=== PATIENT | female | born 1955 | race Caucasian/White ===

== ENCOUNTER → 2017-08-11 | Outpatient (CLI) | payer OTHER ==
[2017-08-11 13:37] LABS: BASO % 0.8 % (0.0-1.0); LARGE UNSTAINED CELL # 0.1 K/mm3 (0.0-0.4); LARGE UNSTAINED CELL % 1.7 % (0.0-4.0); LYMPH # 0.8 K/mm3 (1.5-4.5); LYMPH % 16.3 % (24.0-44.0); MEAN CORPUSCULAR HEMOGLOBIN 32.6 pg (27.0-33.0); MEAN CORPUSCULAR HGB CONC 34.2 g/dl (32.0-36.5); MEAN CORPUSCULAR VOLUME 95.4 fl (80.0-96.0); MONO # 0.3 K/mm3 (0.0-0.8); MONO % 7.3 % (0.0-5.0); NEUTROPHILS # 3.4 K/mm3 (1.8-7.7); NEUTROPHILS % 72.9 % (36.0-66.0); PLATELET COUNT, AUTOMATED 233 k/mm3 (150-450); RED CELL DISTRIBUTION WIDTH 12.8 % (11.5-14.5); WHITE BLOOD COUNT 4.7 K/mm3 (4.0-10.0)
[2017-08-11 13:44] LABS: ALBUMIN 3.6 GM/DL (3.2-5.2); ALBUMIN/GLOBULIN RATIO 1.29 (1.00-1.93); ALKALINE PHOSPHATASE 70 U/L (45-117); ALT/SGPT 30 U/L (12-78); ANION GAP 9 MEQ/L (8-16); AST/SGOT 18 U/L (15-37); BILIRUBIN,TOTAL 0.4 MG/DL (0.2-1.0); BLOOD UREA NITROGEN 12 MG/DL (7-18); CALCIUM LEVEL 8.7 MG/DL (8.8-10.2); CARBON DIOXIDE LEVEL 26 MEQ/L (21-32); CHLORIDE LEVEL 107 MEQ/L (98-107); CHOLESTEROL LEVEL 161 MG/DL (<200); CREATININE FOR GFR 0.83 MG/DL (0.55-1.02); FREE T4 0.92 NG/DL (0.76-1.46); GLOMERULAR FILTRATION RATE > 60.0 (>45); GLUCOSE, FASTING 114 MG/DL (80-110); POTASSIUM SERUM 4.3 MEQ/L (3.5-5.1); SODIUM LEVEL 142 MEQ/L (136-145); TOTAL PROTEIN 6.4 GM/DL (6.4-8.2); TRIGLYCERIDES LEVEL 216 MG/DL (<150)
== END ==
LOC: M WUC 08:46
PROVIDERS: ATTEND Nurse Practitioner Adult Health
DX: E55.9 Vitamin D deficiency, unspecified (principal); Z79.899 Other long term (current) drug therapy; E78.00 Pure hypercholesterolemia, unspecified

== ENCOUNTER → 2021-10-15 | Outpatient (CLI) | payer MEDICARE, OTHER ==
[~2021-10-15] MED LIST: ALBU8.5H; CEFD300CAP PO; DIAZ2TAB PO; ELIQ5TAB PO; FLON1SPR; FLON1SPR NARES; HYDR-3910 PO; IBUP200C25 PO; LACT20EL PO; LEVO500T4; LIDO2SOL17 PO; METO1TAB33; METO1TAB33 PO; NICO1DIS12 TD; NICO7DIS24 TD; ONDA-84 PO; OXYC1SOL3 PO; POTA8CAP10 PO; PRED10TA2; PROAAER10 INH; PROC10TA5 PO; SENN8.6T28 PO; SENO8.6T5 PO; SIMV10TA21; SIMV10TA21 PO
== END ==
LOC: M RAD 16:10
PROVIDERS: ATTEND Nurse Practitioner Family
DX: R06.02 Shortness of breath (principal)

== ENCOUNTER → 2021-10-20 | Outpatient (CLI) | payer MEDICARE, OTHER ==
[~2021-10-20] MED LIST changes: -CEFD300CAP PO; -DIAZ2TAB PO; -FLON1SPR; -LACT20EL PO; +LEVO500T3; -LEVO500T4; -LIDO2SOL17 PO; -METO1TAB33 PO; -NICO1DIS12 TD; -ONDA-84 PO; -OXYC1SOL3 PO; -POTA8CAP10 PO; -PROAAER10 INH; -PROC10TA5 PO; -SENN8.6T28 PO; -SIMV10TA21 PO
--- NOTE | 2021-10-20 12:32 | REP ---
INDICATION: SOB, LUNG NODUILE COMPARISON: None TECHNIQUE: Axial noncontrast images from the thoracic inlet to the upper abdomen with coronal and sagittal reformations. This CT examination was performed using the following dose reduction techniques: Automated exposure control, adjustment of mA and/or kv according to the patient's size, and use of iterative reconstruction technique. FINDINGS: There is a large mass which appears to be emanating from the right hilar region diffusely involving the mediastinum and causing what appears to be postobstructive collapse to the right upper and right middle lobe with adjacent elements of atelectasis and small effusion. Evaluation is otherwise incomplete due to the lack of intravenous and intrinsic enhancement between mass and mediastinal structures. There is no evidence for cardiomegaly although a small pericardial effusion is noted. The thoracic aorta demonstrates atherosclerotic changes without obvious aneurysm but is inseparable from the above-mentioned mass/adenopathy. The left hemithorax is clear. The osseous structures appear intact. Limited upper abdomen cannot exclude left adrenal nodule versus splenule. IMPRESSION: Large mass involving the right lung with significant extension/invasion into the mediastinum and associated postobstructive collapse to the right upper lobe and right middle lobe with small trapped apical pleural fluid as well as lower lobe atelectasis. Immediate evaluation and consultation is required. <Electronically signed by Imer Price > 10/20/21 0274
== END ==
LOC: M RAD 10:25
PROVIDERS: ATTEND Nurse Practitioner Family
DX: R91.8 Other nonspecific abnormal finding of lung field (principal); R06.02 Shortness of breath

== ENCOUNTER 2021-10-21 06:10 | Emergency (ER) | payer MEDICARE, OTHER ==
[~2021-10-21] VITALS: Ht 160 cm; Wt 71.8 kg
[2021-10-21] MEDS ORDERED: ALBU8.5H (06:19)
[2021-10-21] MEDS ORDERED: METO1TAB33 (06:19)
[2021-10-21] MEDS ORDERED: LEVO500T4 (06:19)
[2021-10-21] MEDS ORDERED: PRED10TA2 (06:19)
[2021-10-21] MEDS ORDERED: SIMV10TA21 (06:19)
[2021-10-21] MEDS ORDERED: dexameTHASONE 20MG/5ML VIAL (J1100 PER 1MG) IV ONE (08:30)
[2021-10-21 08:32] LABS: BASO # 0.1 10^3/uL (0.0-0.2); BASO % 0.4 % (0.0-1.0); EOS % 0.2 % (0.0-3.0); HEMATOCRIT 44.2 % (36.0-47.0); HEMOGLOBIN 14.4 g/dl (12.0-15.5); LYMPH # 2.8 10^3/uL (1.5-5.0); MEAN CORPUSCULAR HEMOGLOBIN 29.6 pg (27.0-33.0); MEAN CORPUSCULAR HGB CONC 32.6 g/dl (32.0-36.5); MEAN CORPUSCULAR VOLUME 90.8 fl (80.0-96.0); MONO # 1.2 10^3/uL (0.0-0.8); NEUTROPHILS % 67.9 % (36.0-66.0); PLATELET COUNT, AUTOMATED 438 10^3/uL (150-450); RED BLOOD COUNT 4.87 10^6/uL (4.00-5.40); WHITE BLOOD COUNT 13.2 10^3/uL (4.0-10.0)
[2021-10-21 08:43] LABS: INR 0.95
[2021-10-21 08:44] LABS: PARTIAL THROMBOPLASTIN TIME 30.2 SECONDS (25.9-37.0)
[2021-10-21 08:53] LABS: ALBUMIN 3.9 GM/DL (3.2-5.2); ALT/SGPT 19 U/L (12-78); BILIRUBIN,DIRECT < 0.1 MG/DL (0.0-0.2); BILIRUBIN,TOTAL 0.4 MG/DL (0.2-1.0); BLOOD UREA NITROGEN 15 MG/DL (7-18); CALCIUM LEVEL 9.7 MG/DL (8.8-10.2); CARBON DIOXIDE LEVEL 25 MEQ/L (21-32); CHLORIDE LEVEL 103 MEQ/L (98-107); CREATININE FOR GFR 0.73 MG/DL (0.55-1.30); GLOMERULAR FILTRATION RATE > 60.0 (>45); GLUCOSE, FASTING 115 MG/DL (70-100); SODIUM LEVEL 138 MEQ/L (136-145); TOTAL PROTEIN 7.2 GM/DL (6.4-8.2)
[2021-10-21] MEDS ORDERED: ISOVUE-370 76% 100ML VIAL As Ordered ONE (08:55)
[2021-10-21 09:50] LABS: RSV AMPLIFICATION NEGATIVE (NEGATIVE)
[2021-10-21 14:08] VITALS: BP 169/104
[2021-11-03] MEDS ORDERED: NICO7DIS24 TD (13:26)
[2021-11-03] MEDS ORDERED: HYDR-3910 PO (13:26)
[2021-11-03] MEDS ORDERED: SENO8.6T5 PO (13:26)
[2021-11-03] MEDS ORDERED: IBUP200C25 PO (13:26)
[2021-11-03] MEDS ORDERED: FLON1SPR NARES (13:26)
[2021-11-05] MEDS ORDERED: ELIQ5TAB PO (10:21)
[2021-11-24] MEDS ORDERED: PROC10TA5 PO (10:46)
[2021-11-24] MEDS ORDERED: ONDA-84 PO (10:46)
[2021-12-15] MEDS ORDERED: POTA8CAP10 PO (09:01)
[2021-12-15] MEDS ORDERED: LIDO2SOL17 PO (15:37)
[2022-01-11] MEDS ORDERED: LACT20EL PO (13:58)
[2022-01-18] MEDS ORDERED: DIAZ2TAB PO (14:40)
[2022-01-18] MEDS ORDERED: OXYC1SOL3 PO (14:40)
== END 2021-10-21 14:12 | disposition short-term general hospital (02) ==
LOC: M ED 06:10
DX: I10 Essential (primary) hypertension (principal); D49.1 Neoplasm of unspecified behavior of respiratory system; I87.1 Compression of vein; R91.8 Other nonspecific abnormal finding of lung field; R93.2 Abnormal findings on diagnostic imaging of liver and biliary tract; J44.9 Chronic obstructive pulmonary disease, unspecified; F17.200 Nicotine dependence, unspecified, uncomplicated; Z88.0 Allergy status to penicillin
CPT/HCPCS: 71275; 74177; 80048; 80076; 83605; 85025; 85610; 85730; 87040; 87631; 93005; 93041; 94760; 96374; 99285; J1100; Q9967

== ENCOUNTER → 2021-11-03 | Outpatient (CLI) | payer MEDICARE, OTHER ==
[~2021-11-03] MED LIST changes: +ONDA8TAB10 PO; +PROC10TA4 PO
== END ==
LOC: M ONCR 15:11
PROVIDERS: ATTEND General Practice
DX: C34.01 Malignant neoplasm of right main bronchus (principal); Z87.891 Personal history of nicotine dependence; Z88.0 Allergy status to penicillin; Z79.899 Other long term (current) drug therapy

== ENCOUNTER → 2021-11-05 | Outpatient (CLI) | payer MEDICARE, OTHER ==
[~2021-11-05] MED LIST changes: +CEFD300CAP PO; +DIAZ2TAB PO; +FLON1SPR; +LACT20EL PO; -LEVO500T3; +LEVO500T4; +LIDO2SOL17 PO; +LIDOCAINE 1% MDV 20ML VIAL As Ordered ONE; +METO1TAB33 PO; +MIDAZOLAM INJ 2MG/2ML VIAL (J2250 PER 1MG) As Ordered ONE; +NICO1DIS12 TD; +NS 1,000 ML IV ONE; +ONDA-84 PO; -ONDA8TAB10 PO; +OXYC1SOL3 PO; +POTA8CAP10 PO; +PROAAER10 INH; -PROC10TA4 PO; +PROC10TA5 PO; +SENN8.6T28 PO; +SIMV10TA21 PO; +VANCOMYCIN 1000MG/20ML VIAL As Ordered ONE; +VANCOMYCIN HCL 1,000 MG, VIAL MATE ADAPTER 1 EACH in NS 250 ML IV ONE; +diphenhydrAMINE 50MG/ML VIAL (J1200) As Ordered ONE; +fentaNYL 100 MCG/2 ML INJECTION As Ordered ONE
[2021-11-05 14:15] VITALS: BP 166/93
== END ==
LOC: M IRPRO 08:59
PROVIDERS: ATTEND Internal Medicine Hematology & Oncology
DX: C34.01 Malignant neoplasm of right main bronchus (principal)
CPT/HCPCS: 36561; 99152; 99153; C1769; C1788; C1894; J1200; J1642; J1644; J2250; J3010; J3370

== ENCOUNTER 2021-11-25 11:40 | Outpatient (RCR) | payer MEDICARE, OTHER ==
[~2021-11-25 11:40] MED LIST changes: -CEFD300CAP PO; -DIAZ2TAB PO; -FLON1SPR; -LACT20EL PO; +LEVO500T3; -LEVO500T4; -LIDO2SOL17 PO; -LIDOCAINE 1% MDV 20ML VIAL As Ordered ONE; -METO1TAB33 PO; -MIDAZOLAM INJ 2MG/2ML VIAL (J2250 PER 1MG) As Ordered ONE; -NICO1DIS12 TD; -NS 1,000 ML IV ONE; -ONDA-84 PO; +ONDA8TAB10 PO; -OXYC1SOL3 PO; -POTA8CAP10 PO; -PROAAER10 INH; +PROC10TA4 PO; -PROC10TA5 PO; -SENN8.6T28 PO; -SIMV10TA21 PO; -VANCOMYCIN 1000MG/20ML VIAL As Ordered ONE; -VANCOMYCIN HCL 1,000 MG, VIAL MATE ADAPTER 1 EACH in NS 250 ML IV ONE; -diphenhydrAMINE 50MG/ML VIAL (J1200) As Ordered ONE; -fentaNYL 100 MCG/2 ML INJECTION As Ordered ONE
== END 2021-11-27 ==
LOC: M ONCR 11:40
PROVIDERS: ATTEND General Practice
DX: C34.11 Malignant neoplasm of upper lobe, right bronchus or lung (principal)

== ENCOUNTER 2021-12-21 19:21 | Inpatient (IN) | payer MEDICARE ==
[~2021-12-21] VITALS: Ht 160 cm; Wt 56.5 kg
[~2021-12-21 19:21] MED LIST changes: -LEVO500T3; +LEVO500T4; +LIDO2SOL17 PO; +ONDA-84 PO; -ONDA8TAB10 PO; +POTA8CAP10 PO; -PROC10TA4 PO; +PROC10TA5 PO
[2021-12-21] MEDS ORDERED: NS 1,000 ML IV ONE (19:45)
[2021-12-21] MEDS ORDERED: LORazepam 2 MG/ML VIAL IV STA (20:06)
[2021-12-21] MEDS ORDERED: LORazepam 2 MG/ML VIAL IM ONE (20:15)
[2021-12-21] MEDS ORDERED: HALOPERIDOL 5MG/ML VIAL (J1630 PER 1) IM ONE (20:15)
[2021-12-21] MEDS ORDERED: diphenhydrAMINE 50MG/ML VIAL (J1200) IM ONE (20:15)
[2021-12-21 20:56] LABS: HEMATOCRIT 32.2 % (36.0-47.0); HEMOGLOBIN 10.4 g/dl (12.0-15.5); MEAN CORPUSCULAR HEMOGLOBIN 28.3 pg (27.0-33.0); MEAN CORPUSCULAR HGB CONC 32.3 g/dl (32.0-36.5); MEAN CORPUSCULAR VOLUME 87.7 fl (80.0-96.0); PLATELET COUNT, AUTOMATED 263 10^3/uL (150-450); RED BLOOD COUNT 3.67 10^6/uL (4.00-5.40); WHITE BLOOD COUNT 7.4 10^3/uL (4.0-10.0)
[2021-12-21 21:09] LABS: CK-MB VALUE MASS < 1.0 NG/ML (<3.6); CPK CREATINE PHOSPHOKINASE 21 U/L (26-192); MB/CK RELATIVE INDEX 4.76 (< OR =4)
[2021-12-21 21:12] LABS: OSMOLALITY SERUM 289 MOSM/KG (280-301)
[2021-12-21 21:14] LABS: ACETAMINOPHEN LEVEL < 2.0 UG/ML (10.0-30.0); ALBUMIN 3.3 GM/DL (3.2-5.2); ALT/SGPT 44 U/L (12-78); BILIRUBIN,DIRECT 0.1 MG/DL (0.0-0.2); BILIRUBIN,TOTAL 0.5 MG/DL (0.2-1.0); BLOOD UREA NITROGEN 17 MG/DL (7-18); CALCIUM LEVEL 9.1 MG/DL (8.8-10.2); CARBON DIOXIDE LEVEL 31 MEQ/L (21-32); CHLORIDE LEVEL 102 MEQ/L (98-107); ETHYL ALCOHOL (ETHANOL) < 0.003 % (0.000-0.010); GLOMERULAR FILTRATION RATE > 60.0 (>45); GLUCOSE, FASTING 107 MG/DL (70-100); POTASSIUM SERUM 4.1 MEQ/L (3.5-5.1); SALICYLATE LEVEL < 1.7 MG/DL (5.0-30.0); SODIUM LEVEL 139 MEQ/L (136-145); TOTAL PROTEIN 6.3 GM/DL (6.4-8.2)
[2021-12-21 21:24] LABS: BASOPHILS 2 % (0-1); LYMPHOCYTES 12 % (16-44); MONOCYTES 1 % (0-5); NEUTROPHILS 85 % (28-66)
[2021-12-21 21:25] LABS: PLATELET ESTIMATE NORMAL (NORMAL)
[2021-12-21] MEDS ORDERED: dexameTHASONE 20MG/5ML VIAL (J1100 PER 1MG) IV ONE (21:50)
[2021-12-21] MEDS ORDERED: levETIRAcetam INJection 750 MG in D5W 100 ML IV ONE (21:50)
[2021-12-21 22:30] LABS: ABG BASE EXCESS 0.5 (-2.0-2.0); ABG HCO3 23.7 MEQ/L (22.0-26.0); ABG O2 SATURATION 98.3 % (95.0-99.0); ABG PARTIAL PRESSURE CO2 33.1 mmHg (35.0-45.0); ABG PARTIAL PRESSURE O2 130.3 mmHg (75.0-100.0); ABG STANDARD HCO3 24.9 MEQ/L (22.0-26.0); ABG TOTAL CO2 24.7 MEQ/L (23.0-31.0); ABG pH (ARTERIAL) 7.473 UNITS (7.350-7.450)
[2021-12-21 23:18] LABS: AMPHETAMINES LEVEL URINE NEGATIVE (NEGATIVE); BARBITURATES URINE NEGATIVE (NEGATIVE); BENZODIAZEPINES URINE NEGATIVE (NEGATIVE); CANNABINOIDS URINE NEGATIVE (NEGATIVE); COCAINE METABOLITE URINE NEGATIVE (NEGATIVE); METHADONE URINE NEGATIVE (NEGATIVE); OPIATES URINE NEGATIVE (NEGATIVE); PHENCYCLIDINE URINE NEGATIVE (NEGATIVE)
[2021-12-21] MEDS ORDERED: cefTRIAXone SOD 1 GM in D5W MINI-BAG PLUS 50 ML IV ONE (23:40)
[2021-12-22] MEDS ORDERED: MAALOX 30 ML SUSP *UDC PO PRN (00:30)
[2021-12-22] MEDS ORDERED: ACETAMINOPHEN TAB 650MG DOSE (2X325MG) PO PRN (00:30)
[2021-12-22] MEDS ORDERED: MOM 30ML SUSPENSION UDC PO PRN (00:30)
[2021-12-22] MEDS ORDERED: LORazepam 2 MG/ML VIAL IV PRN (00:30)
[2021-12-22] MEDS ORDERED: PROAAER10 INH (01:29)
[2021-12-22] MEDS ORDERED: NICO1DIS12 TD (01:29)
[2021-12-22] MEDS ORDERED: SENN8.6T28 PO (01:29)
[2021-12-22] MEDS ORDERED: FLON1SPR (01:29)
[2021-12-22] MEDS ORDERED: METO1TAB33 PO (01:29)
[2021-12-22] MEDS ORDERED: SIMV10TA21 PO (01:30)
[2021-12-22] MEDS ORDERED: HOME MED LIST COMPLETE! XX SCH (01:35)
[2021-12-22 01:50] VITALS: BP 184/82
[2021-12-22] MEDS ORDERED: ALBUTEROL 90 MCG/ACT 8GM HFA INHALER INH PRN (02:05)
[2021-12-22] MEDS ORDERED: FLUTICASONE PROP 0.05% NASAL SPRAY 16 GM (FLONASE) PRN (02:05)
[2021-12-22] MEDS ORDERED: ONDANSETRON 4 MG TAB PO PRN (02:05)
[2021-12-22] MEDS ORDERED: PROCHLORPERAZINE 5 MG TAB (S0183) PO PRN (02:05)
[2021-12-22 02:30] VITALS: BP 152/84
[2021-12-22] MEDS: PHENAZOPYRIDINE 100 MG TAB PO SCH ×4 (02:57→20:03)
[2021-12-22] MEDS: NS 1,000 ML IV SCH ×2 (03:12→10:30)
[2021-12-22 06:10] VITALS: BP 146/84
[2021-12-22 06:35] LABS: INR 1.03; PARTIAL THROMBOPLASTIN TIME 30.6 SECONDS (25.9-37.0); PROTHROMBIN TIME 13.9 SECONDS (12.7-14.5)
[2021-12-22] MEDS ORDERED: POTASSIUM CHLORIDE 10MEQ SR TABLET PO SCH (09:00)
[2021-12-22] MEDS: NICOTINE 21MG/24HR 1 EA TRANSDERMAL TD SCH (09:00)
[2021-12-22] MEDS: APIXABAN 5 MG TAB (ELIQUIS) PO SCH ×2 (09:49→20:03)
[2021-12-22] MEDS: DOCUSATE SODIUM 100MG CAPSULE PO SCH ×2 (09:49→20:03)
[2021-12-22] MEDS: LIDOCAINE VISCOUS 2% SOLN 15ML UDC PO SCH ×4 (09:49→20:05)
[2021-12-22] MEDS: SIMVASTATIN 10 MG TAB PO SCH (09:50)
[2021-12-22] MEDS: METOPROLOL SUCC (TopROL XL) 100MG *XL* TAB PO SCH (09:51)
[2021-12-22 15:53] VITALS: BP 153/79
[2021-12-22] MEDS: SODIUM CHLORIDE NASAL 0.65% SPRAY BTL (OCEAN) SCH (20:11)
[2021-12-22 22:00] VITALS: BP 140/78
[2021-12-23] MEDS: cefTRIAXone SOD 1 GM in D5W MINI-BAG PLUS 50 ML IV SCH (01:27)
[2021-12-23 05:18] LABS: HEMATOCRIT 27.4 % (36.0-47.0); HEMOGLOBIN 8.9 g/dl (12.0-15.5); MEAN CORPUSCULAR HEMOGLOBIN 28.5 pg (27.0-33.0); MEAN CORPUSCULAR HGB CONC 32.5 g/dl (32.0-36.5); MEAN CORPUSCULAR VOLUME 87.8 fl (80.0-96.0); PLATELET COUNT, AUTOMATED 165 10^3/uL (150-450); RED BLOOD COUNT 3.12 10^6/uL (4.00-5.40); WHITE BLOOD COUNT 4.5 10^3/uL (4.0-10.0)
[2021-12-23 05:44] LABS: BLOOD UREA NITROGEN 10 MG/DL (7-18); CALCIUM LEVEL 8.3 MG/DL (8.8-10.2); CARBON DIOXIDE LEVEL 27 MEQ/L (21-32); CHLORIDE LEVEL 107 MEQ/L (98-107); CREATININE FOR GFR 0.45 MG/DL (0.55-1.30); GLOMERULAR FILTRATION RATE > 60.0 (>45); GLUCOSE, FASTING 87 MG/DL (70-100); MAGNESIUM LEVEL 1.7 MG/DL (1.8-2.4); POTASSIUM SERUM 3.3 MEQ/L (3.5-5.1); SODIUM LEVEL 140 MEQ/L (136-145)
[2021-12-23 06:00] VITALS: BP 138/78
[2021-12-23] MEDS ORDERED: MAG SULF 1GM/100ML (MAG RUN) 1 GM in IV 1 EA IV ONE (07:40)
[2021-12-23] MEDS ORDERED: POTASSIUM CHLORIDE 10MEQ SR TABLET PO ONE (07:40)
[2021-12-23] MEDS: SODIUM CHLORIDE NASAL 0.65% SPRAY BTL (OCEAN) SCH ×3 (08:01→20:19)
[2021-12-23] MEDS: LIDOCAINE VISCOUS 2% SOLN 15ML UDC PO SCH ×3 (08:01→20:19)
[2021-12-23] MEDS: PHENAZOPYRIDINE 100 MG TAB PO SCH ×3 (08:02→20:18)
[2021-12-23] MEDS: DOCUSATE SODIUM 100MG CAPSULE PO SCH ×2 (08:03→20:18)
[2021-12-23] MEDS: METOPROLOL SUCC (TopROL XL) 100MG *XL* TAB PO SCH (08:04)
[2021-12-23] MEDS: NICOTINE 21MG/24HR 1 EA TRANSDERMAL TD SCH (08:05)
[2021-12-23] MEDS: SIMVASTATIN 10 MG TAB PO SCH (08:14)
[2021-12-23] MEDS: APIXABAN 5 MG TAB (ELIQUIS) PO SCH ×2 (08:14→20:19)
[2021-12-23 14:00] VITALS: BP 134/81
[2021-12-23 22:00] VITALS: BP 105/65
[2021-12-24] MEDS: cefTRIAXone SOD 1 GM in D5W MINI-BAG PLUS 50 ML IV SCH (01:12)
[2021-12-24 06:00] VITALS: BP 110/81
[2021-12-24] MEDS: SIMVASTATIN 10 MG TAB PO SCH (09:00)
[2021-12-24] MEDS: DOCUSATE SODIUM 100MG CAPSULE PO SCH (09:00)
[2021-12-24] MEDS: LIDOCAINE VISCOUS 2% SOLN 15ML UDC PO SCH ×2 (09:00→16:00)
[2021-12-24] MEDS: APIXABAN 5 MG TAB (ELIQUIS) PO SCH (09:00)
[2021-12-24] MEDS: NICOTINE 21MG/24HR 1 EA TRANSDERMAL TD SCH (09:28)
[2021-12-24] MEDS: PHENAZOPYRIDINE 100 MG TAB PO SCH ×2 (09:29→16:00)
[2021-12-24 09:30] VITALS: BP 121/82
[2021-12-24] MEDS: SODIUM CHLORIDE NASAL 0.65% SPRAY BTL (OCEAN) SCH ×2 (09:30→16:00)
[2021-12-24] MEDS: METOPROLOL SUCC (TopROL XL) 100MG *XL* TAB PO SCH (09:30)
[2021-12-24] MEDS ORDERED: CEFD300CAP PO (10:46)
[2021-12-24 10:54] LABS: HEMOGLOBIN 9.3 g/dl (12.0-15.5); MEAN CORPUSCULAR HEMOGLOBIN 28.9 pg (27.0-33.0); MEAN CORPUSCULAR HGB CONC 33.2 g/dl (32.0-36.5); PLATELET COUNT, AUTOMATED 131 10^3/uL (150-450); RED BLOOD COUNT 3.22 10^6/uL (4.00-5.40)
[2021-12-24 11:30] LABS: ATYPICAL LYMPH 2 % (0-5); BASOPHILS 2 % (0-1); LYMPHOCYTES 9 % (16-44); MONOCYTES 2 % (0-5); NEUTROPHILS 85 % (28-66); PLATELET ESTIMATE NORMAL (NORMAL); POIKILOCYTOSIS 1+
[2021-12-24 12:39] LABS: BLOOD UREA NITROGEN 7 MG/DL (7-18); CALCIUM LEVEL 8.6 MG/DL (8.8-10.2); CARBON DIOXIDE LEVEL 29 MEQ/L (21-32); CHLORIDE LEVEL 103 MEQ/L (98-107); CREATININE FOR GFR 0.48 MG/DL (0.55-1.30); GLOMERULAR FILTRATION RATE > 60.0 (>45); GLUCOSE, FASTING 108 MG/DL (70-100); MAGNESIUM LEVEL 1.9 MG/DL (1.8-2.4); POTASSIUM SERUM 4.1 MEQ/L (3.5-5.1); SODIUM LEVEL 138 MEQ/L (136-145)
[2021-12-24 14:00] VITALS: BP 112/66
== END 2021-12-24 16:35 | disposition home health service (06) | DRG 689 ==
LOC: M ED 19:21 → M ED INP 12-22 00:26 → ENRESERV 12-22 00:50 → M MS5PR 12-22 01:47
PROVIDERS: ADMIT Internal Medicine; ATTEND Internal Medicine Nephrology
DX: N39.0 Urinary tract infection, site not specified (principal); G93.41 Metabolic encephalopathy; C34.90 Malignant neoplasm of unspecified part of unspecified bronchus or lung; C78.1 Secondary malignant neoplasm of mediastinum; J96.11 Chronic respiratory failure with hypoxia; I87.1 Compression of vein; R41.82 Altered mental status, unspecified; I48.91 Unspecified atrial fibrillation; B96.20 Unspecified Escherichia coli [E. coli] as the cause of diseases classified elsewhere; E78.5 Hyperlipidemia, unspecified; E83.42 Hypomagnesemia; E87.6 Hypokalemia; K59.00 Constipation, unspecified; E55.9 Vitamin D deficiency, unspecified; F34.1 Dysthymic disorder; Z99.81 Dependence on supplemental oxygen; Z87.891 Personal history of nicotine dependence; Z79.01 Long term (current) use of anticoagulants; Z79.899 Other long term (current) drug therapy; Z88.0 Allergy status to penicillin; Z91.010 Allergy to peanuts

== ENCOUNTER → 2021-12-28 | Outpatient (RCR) | payer MEDICARE, OTHER ==
[~2021-12-28] MED LIST changes: +CEFD300CAP PO; +FLON1SPR; +METO1TAB33 PO; +NICO1DIS12 TD; +PROAAER10 INH; +SENN8.6T28 PO; +SIMV10TA21 PO
== END ==
LOC: M ONCR 12-01 16:08
PROVIDERS: ATTEND General Practice
DX: C34.11 Malignant neoplasm of upper lobe, right bronchus or lung (principal); R53.83 Other fatigue

== ENCOUNTER → 2022-01-25 | Outpatient (RCR) | payer MEDICARE ==
[~2022-01-25] MED LIST changes: +DIAZ2TAB PO; +LACT20EL PO; +OXYC1SOL3 PO
== END ==
LOC: M ONCR 12-29 13:36
PROVIDERS: ATTEND General Practice
DX: C34.11 Malignant neoplasm of upper lobe, right bronchus or lung (principal); R53.83 Other fatigue

== ENCOUNTER 2022-02-10 13:30 | Outpatient (RCR) | payer MEDICARE ==
[~2022-02-10 13:30] MED LIST changes: +EPIP0.3I2 IM
[2022-02-10] MEDS ORDERED: FENT12DI12 TOP (13:50)
[2022-02-17] MEDS ORDERED: [UNRECOGNIZED DRUG - CODE] PR (11:37)
[2022-02-22] MEDS ORDERED: FENT12DI12 TOP (12:05)
[2022-02-22] MEDS ORDERED: OXYC1SOL3 PO (12:10)
== END 2022-02-25 ==
LOC: M ONCR 13:30
PROVIDERS: ATTEND General Practice
DX: C34.11 Malignant neoplasm of upper lobe, right bronchus or lung (principal); R53.83 Other fatigue
CPT/HCPCS: 77336; 77386; G0463

== ENCOUNTER → 2022-02-17 | Outpatient (CLI) | payer MEDICARE ==
[~2022-02-17] MED LIST changes: +FENT12DI12 TOP; +[UNRECOGNIZED DRUG - CODE] PR
== END ==
LOC: M ONCR 10:14
PROVIDERS: ATTEND General Practice
DX: C34.11 Malignant neoplasm of upper lobe, right bronchus or lung (principal); R13.10 Dysphagia, unspecified

== ENCOUNTER → 2022-02-24 | Outpatient (CLI) | payer OTHER ==
[~2022-02-24] MED LIST changes: +GASTROGRAFIN SOLUTION 30ML (Q9963) As Ordered ONE; +ISOVUE-370 76% 100ML VIAL As Ordered ONE
== END ==
LOC: M RAD 08:25
PROVIDERS: ATTEND Internal Medicine Hematology & Oncology
DX: C34.90 Malignant neoplasm of unspecified part of unspecified bronchus or lung (principal)
CPT/HCPCS: 71260; 74177; Q9963; Q9967

== ENCOUNTER 2022-03-09 09:37 | Outpatient (RCR) | payer MEDICARE ==
[~2022-03-09 09:37] MED LIST changes: +DEXA2TA PO; -GASTROGRAFIN SOLUTION 30ML (Q9963) As Ordered ONE; -ISOVUE-370 76% 100ML VIAL As Ordered ONE; +LEXA1TAB PO; +LIDO2SOL17; +META28.32 PO
[2022-03-09] MEDS ORDERED: ATOR1TAB21 PO (11:21)
[2022-03-09] MEDS ORDERED: ASPI81CH33 PO (11:22)
== END 2022-03-27 ==
LOC: M ONCR 09:37
PROVIDERS: ATTEND General Practice
DX: C34.11 Malignant neoplasm of upper lobe, right bronchus or lung (principal)

== ENCOUNTER → 2022-05-05 | Outpatient (CLI) | payer MEDICARE ==
[~2022-05-05] MED LIST changes: +ASPI81CH33 PO; +ATOR1TAB21 PO
== END ==
LOC: M RAD 10:41
PROVIDERS: ATTEND Internal Medicine Hematology & Oncology
DX: Z53.9 Procedure and treatment not carried out, unspecified reason (principal)

== ENCOUNTER → 2022-06-03 | Outpatient (CLI) | payer OTHER ==
[~2022-06-03] MED LIST changes: +TOPR100T PO
== END ==
LOC: M ONCR 09:09
PROVIDERS: ATTEND General Practice
DX: Z85.118 Personal history of other malignant neoplasm of bronchus and lung (principal); Z87.891 Personal history of nicotine dependence; Z92.21 Personal history of antineoplastic chemotherapy; Z92.3 Personal history of irradiation; Z08 Encounter for follow-up examination after completed treatment for malignant neoplasm; Z88.0 Allergy status to penicillin; Z91.010 Allergy to peanuts; Z79.82 Long term (current) use of aspirin; Z79.891 Long term (current) use of opiate analgesic; Z79.899 Other long term (current) drug therapy; Z79.51 Long term (current) use of inhaled steroids

== ENCOUNTER → 2022-06-09 | Outpatient (CLI) | payer MEDICARE | LOC: M ONCR 09:19 | PROVIDERS: ATTEND General Practice | DX: Z53.9 Procedure and treatment not carried out, unspecified reason (principal) ==

== ENCOUNTER → 2022-07-02 | Outpatient (CLI) | payer OTHER ==
[~2022-07-02] MED LIST changes: +LEVO1TAB39; -LEVO500T4
[2022-07-02 14:31] LABS: ALBUMIN 3.3 GM/DL (3.2-5.2); ALT/SGPT 19 U/L (12-78); BILIRUBIN,TOTAL 0.4 MG/DL (0.2-1.0); BLOOD UREA NITROGEN 14 MG/DL (7-18); CALCIUM LEVEL 9.1 MG/DL (8.8-10.2); CARBON DIOXIDE LEVEL 27 MEQ/L (21-32); CHLORIDE LEVEL 111 MEQ/L (98-107); CREATININE FOR GFR 0.76 MG/DL (0.55-1.30); GLOMERULAR FILTRATION RATE > 60.0 (>45); GLUCOSE, FASTING 102 MG/DL (70-100); SODIUM LEVEL 142 MEQ/L (136-145); TOTAL PROTEIN 6.3 GM/DL (6.4-8.2)
== END ==
LOC: M ONCM 13:02
PROVIDERS: ATTEND General Practice
DX: Z51.0 Encounter for antineoplastic radiation therapy (principal); C34.11 Malignant neoplasm of upper lobe, right bronchus or lung

== ENCOUNTER → 2022-07-05 | Outpatient (CLI) | payer MEDICARE ==
[~2022-07-05] MED LIST changes: +GASTROGRAFIN SOLUTION 30ML (Q9963) As Ordered ONE; +ISOVUE-370 76% 100ML VIAL As Ordered ONE
== END ==
LOC: M RAD 09:19
PROVIDERS: ATTEND General Practice
DX: C34.11 Malignant neoplasm of upper lobe, right bronchus or lung (principal); N28.1 Cyst of kidney, acquired; K57.30 Diverticulosis of large intestine without perforation or abscess without bleeding
CPT/HCPCS: 70470; 71260; 74177; Q9963; Q9967

== ENCOUNTER → 2022-07-07 | Outpatient (CLI) | payer MEDICARE ==
[~2022-07-07] MED LIST changes: -GASTROGRAFIN SOLUTION 30ML (Q9963) As Ordered ONE; -ISOVUE-370 76% 100ML VIAL As Ordered ONE
== END ==
LOC: M RAD 10:48
PROVIDERS: ATTEND General Practice
DX: Z51.0 Encounter for antineoplastic radiation therapy (principal); C34.11 Malignant neoplasm of upper lobe, right bronchus or lung

== ENCOUNTER → 2022-07-07 | Outpatient (CLI) | payer MEDICARE | LOC: M ONCR 09:56 | PROVIDERS: ATTEND General Practice | DX: C34.11 Malignant neoplasm of upper lobe, right bronchus or lung (principal); Z92.3 Personal history of irradiation; Z92.21 Personal history of antineoplastic chemotherapy; Z87.891 Personal history of nicotine dependence; Z88.0 Allergy status to penicillin; Z91.010 Allergy to peanuts; Z79.899 Other long term (current) drug therapy ==

== ENCOUNTER → 2022-12-23 | Outpatient (CLI) | payer MEDICARE ==
[2022-12-23 14:15] LABS: ALBUMIN 3.8 G/DL (3.2-5.2); ALKALINE PHOSPHATASE 106 U/L (46-116); ALT/SGPT 17 U/L (7.0-40); AST/SGOT 20 U/L (<34); BILIRUBIN,TOTAL 0.5 MG/DL (0.3-1.2); BLOOD UREA NITROGEN 15 MG/DL (9-23); CARBON DIOXIDE LEVEL 27 MMOL/L (20-31); CHLORIDE LEVEL 109 MMOL/L (98-107); CREATININE FOR GFR 0.81 MG/DL (0.55-1.30); GLOMERULAR FILTRATION RATE > 60.0 (>45); GLUCOSE, FASTING 99 MG/DL (74-106); POTASSIUM SERUM 4.1 MMOL/L (3.5-5.1); SODIUM LEVEL 142 MMOL/L (136-145); TOTAL PROTEIN 6.6 G/DL (5.7-8.2)
== END ==
LOC: M ONCR 12:53
PROVIDERS: ATTEND General Practice
DX: Z51.0 Encounter for antineoplastic radiation therapy (principal); C34.11 Malignant neoplasm of upper lobe, right bronchus or lung

== ENCOUNTER → 2022-12-23 | Outpatient (REF) | payer MEDICARE ==
[2022-12-23 13:52] LABS: BASO % 0.7 % (0.0-1.0); EOS # 0.1 10^3/uL (0.0-0.5); EOS % 1.9 % (0.0-3.0); HEMATOCRIT 38.4 % (36.0-47.0); LYMPH # 0.7 10^3/uL (1.5-5.0); LYMPH % 16.8 % (24.0-44.0); MEAN CORPUSCULAR HEMOGLOBIN 30.2 pg (27.0-33.0); MEAN CORPUSCULAR HGB CONC 31.3 g/dl (32.0-36.5); MEAN CORPUSCULAR VOLUME 96.7 fl (80.0-96.0); MONO # 0.4 10^3/uL (0.0-0.8); MONO % 8.6 % (2.0-8.0); NEUTROPHILS % 71.1 % (36.0-66.0); PLATELET COUNT, AUTOMATED 176 10^3/uL (150-450); RED BLOOD COUNT 3.97 10^6/uL (4.00-5.40); WHITE BLOOD COUNT 4.3 10^3/uL (4.0-10.0)
[2022-12-23 14:09] LABS: HEMOGLOBIN A1c 5.2 % (4.0-6.0)
[2022-12-23 14:36] LABS: ALBUMIN 3.6 G/DL (3.2-5.2); ALKALINE PHOSPHATASE 106 U/L (46-116); ALT/SGPT 21 U/L (7.0-40); AST/SGOT 21 U/L (<34); BILIRUBIN,TOTAL 0.4 MG/DL (0.3-1.2); BLOOD UREA NITROGEN 18 MG/DL (9-23); CALCIUM LEVEL 8.9 MG/DL (8.3-10.6); CARBON DIOXIDE LEVEL 26 MMOL/L (20-31); CHLORIDE LEVEL 109 MMOL/L (98-107); CHOLESTEROL LEVEL 122 MG/DL (<200); CHOLESTEROL RISK RATIO 3.07 (<5); GLOMERULAR FILTRATION RATE > 60.0 (>45); GLUCOSE, FASTING 99 MG/DL (74-106); HDL CHOLESTEROL 39.7 MG/DL (>40); LDL CHOLESTEROL 62.1 MG/DL (<100); NON-HDL-C 82 MG/DL; POTASSIUM SERUM 4.1 MMOL/L (3.5-5.1); SODIUM LEVEL 142 MMOL/L (136-145); THYROID STIMULATING HORMONE 4.618 uIU/ML (0.55-4.78); TOTAL PROTEIN 6.2 G/DL (5.7-8.2); TRIGLYCERIDES LEVEL 101 MG/DL (<150)
== END ==
LOC: M LAB REF 13:23
PROVIDERS: ATTEND Nurse Practitioner Family
DX: Z00.01 Encounter for general adult medical examination with abnormal findings (principal); Z79.899 Other long term (current) drug therapy

== ENCOUNTER → 2022-12-27 | Outpatient (CLI) | payer MEDICARE ==
[~2022-12-27] MED LIST changes: +GASTROGRAFIN SOLUTION 30ML As Ordered ONE; +ISOVUE-370 76% 100ML VIAL As Ordered ONE; +LIDO15SO4; +LIDO15SO4 PO; -LIDO2SOL17; -LIDO2SOL17 PO
== END ==
LOC: M RAD 11:02
PROVIDERS: ATTEND General Practice
DX: Z51.0 Encounter for antineoplastic radiation therapy (principal)
CPT/HCPCS: 70470; 71260; 74177; Q9963; Q9967

== ENCOUNTER → 2023-01-05 | Outpatient (CLI) | payer MEDICARE ==
[~2023-01-05] MED LIST changes: -GASTROGRAFIN SOLUTION 30ML As Ordered ONE; -ISOVUE-370 76% 100ML VIAL As Ordered ONE
== END ==
LOC: M ONCR 09:50
PROVIDERS: ATTEND General Practice
DX: C34.11 Malignant neoplasm of upper lobe, right bronchus or lung (principal); Z79.51 Long term (current) use of inhaled steroids; Z79.52 Long term (current) use of systemic steroids; Z79.82 Long term (current) use of aspirin; Z79.899 Other long term (current) drug therapy; Z87.891 Personal history of nicotine dependence; Z88.0 Allergy status to penicillin; Z91.010 Allergy to peanuts; Z92.21 Personal history of antineoplastic chemotherapy; Z92.3 Personal history of irradiation

== ENCOUNTER 2023-03-02 22:19 | Emergency (ER) | payer MEDICARE ==
[~2023-03-02] VITALS: Ht 162.6 cm; Wt 45.6 kg
[~2023-03-02 22:19] MED LIST changes: +LIDO15SO; +LIDO15SO PO; -LIDO15SO4; -LIDO15SO4 PO
[2023-03-02] MEDS ORDERED: levETIRAcetam INJection 1,500 MG in D5W 100 ML IV ONE (23:20)
[2023-03-02 23:34] LABS: BASO % 0.3 % (0.0-1.0); EOS # 0.1 10^3/uL (0.0-0.5); EOS % 0.8 % (0.0-3.0); HEMATOCRIT 36.5 % (36.0-47.0); HEMOGLOBIN 11.9 g/dl (12.0-15.5); LYMPH # 0.6 10^3/uL (1.5-5.0); LYMPH % 6.6 % (24.0-44.0); MEAN CORPUSCULAR HEMOGLOBIN 30.4 pg (27.0-33.0); MEAN CORPUSCULAR HGB CONC 32.6 g/dl (32.0-36.5); MEAN CORPUSCULAR VOLUME 93.4 fl (80.0-96.0); MONO # 0.9 10^3/uL (0.0-0.8); MONO % 9.6 % (2.0-8.0); NEUTROPHILS # 7.4 10^3/uL (1.5-8.5); NEUTROPHILS % 81.4 % (36.0-66.0); PLATELET COUNT, AUTOMATED 190 10^3/uL (150-450); RED BLOOD COUNT 3.91 10^6/uL (4.00-5.40)
[2023-03-02 23:47] LABS: INR 0.94; LIPASE 36 U/L (12-53); PROTHROMBIN TIME 12.8 SECONDS (12.5-14.5)
[2023-03-02 23:49] LABS: CPK CREATINE PHOSPHOKINASE 116 U/L (34-145)
[2023-03-02 23:50] VITALS: BP 144/83
[2023-03-02 23:50] LABS: ALBUMIN 3.6 G/DL (3.2-5.2); ALKALINE PHOSPHATASE 103 U/L (46-116); ALT/SGPT 15 U/L (7.0-40); AST/SGOT 26 U/L (<34); BILIRUBIN,DIRECT 0.1 MG/DL (<0.4); BILIRUBIN,TOTAL 0.3 MG/DL (0.3-1.2); BLOOD UREA NITROGEN 18 MG/DL (9-23); CALCIUM LEVEL 8.8 MG/DL (8.3-10.6); CARBON DIOXIDE LEVEL 25 MMOL/L (20-31); CHLORIDE LEVEL 109 MMOL/L (98-107); CREATININE FOR GFR 0.88 MG/DL (0.55-1.30); GLOMERULAR FILTRATION RATE > 60.0 (>45); GLUCOSE, FASTING 115 MG/DL (74-106); POTASSIUM SERUM 4.4 MMOL/L (3.5-5.1); SODIUM LEVEL 141 MMOL/L (136-145); TOTAL PROTEIN 6.2 G/DL (5.7-8.2)
[2023-03-02 23:52] LABS: THYROID STIMULATING HORMONE 4.484 uIU/ML (0.55-4.78)
[2023-03-02 23:53] LABS: CK-MB VALUE MASS < 1.0 NG/ML (<3.6); MB/CK RELATIVE INDEX 0.86 (< OR =4)
[2023-03-03] LABS: RSV AMPLIFICATION NEGATIVE (NEGATIVE)
[2023-03-03 00:18] VITALS: BP 144/83
[2023-03-03] MEDS ORDERED: ASPIRIN 81MG CHEW TABLET PO ONE (01:05)
== END 2023-03-03 01:11 | disposition short-term general hospital (02) ==
LOC: EDBD 22:19 → M ED 22:19
DX: R56.9 Unspecified convulsions (principal); G93.89 Other specified disorders of brain; Z85.118 Personal history of other malignant neoplasm of bronchus and lung
CPT/HCPCS: 70450; 71045; 72125; 80048; 80076; 82550; 82553; 83690; 84443; 84484; 85025; 85610; 87631; 93005; 93041; 94760; 96374; 99285; J1953

== ENCOUNTER → 2023-03-08 | Outpatient (CLI) | payer MEDICARE ==
[~2023-03-08] MED LIST changes: +ATIV1TAB10 PO; +DEXA4TA PO; +DULO30CA47 PO; +KEPP1SOL PO; +LEVE500T5; +LORA2TAB14 PO; +ONDA4TAB6 PO; +TRAM50TA2 PO
== END ==
LOC: M ONCR 14:13
PROVIDERS: ATTEND Radiology Radiation Oncology
DX: C34.90 Malignant neoplasm of unspecified part of unspecified bronchus or lung (principal); C79.31 Secondary malignant neoplasm of brain; E27.9 Disorder of adrenal gland, unspecified; R56.9 Unspecified convulsions; R91.8 Other nonspecific abnormal finding of lung field; Z79.52 Long term (current) use of systemic steroids; Z79.82 Long term (current) use of aspirin; Z79.891 Long term (current) use of opiate analgesic; Z79.899 Other long term (current) drug therapy; Z86.73 Personal history of transient ischemic attack (TIA), and cerebral infarction without residual deficits; Z87.891 Personal history of nicotine dependence; Z88.0 Allergy status to penicillin; Z91.010 Allergy to peanuts; Z92.21 Personal history of antineoplastic chemotherapy; Z92.3 Personal history of irradiation
CPT/HCPCS: G0463; G2212

== ENCOUNTER → 2023-03-09 | Outpatient (CLI) | payer MEDICARE ==
[~2023-03-09] MED LIST changes: -DEXA4TA PO; -DULO30CA47 PO; -KEPP1SOL PO; -LEVE500T5; -LORA2TAB14 PO; -ONDA4TAB6 PO; +PROHANCE 279.3MG/ML 15ML VIAL ONE
== END ==
LOC: M PLAIMG 12:43
PROVIDERS: ATTEND General Practice
DX: Z51.0 Encounter for antineoplastic radiation therapy (principal)
CPT/HCPCS: 70553; A9576

== ENCOUNTER → 2023-03-10 | Outpatient (CLI) | payer MEDICARE ==
[~2023-03-10] MED LIST changes: +DULO30CA47 PO; +LEVE500T5; -PROHANCE 279.3MG/ML 15ML VIAL ONE
== END ==
LOC: M PAL 08:00
PROVIDERS: ATTEND Nurse Practitioner Family
DX: C34.90 Malignant neoplasm of unspecified part of unspecified bronchus or lung (principal); C79.31 Secondary malignant neoplasm of brain; Z51.5 Encounter for palliative care; G89.3 Neoplasm related pain (acute) (chronic); M25.519 Pain in unspecified shoulder; M54.9 Dorsalgia, unspecified; F41.9 Anxiety disorder, unspecified; Z79.891 Long term (current) use of opiate analgesic; Z79.899 Other long term (current) drug therapy

== ENCOUNTER → 2023-03-10 | Outpatient (CLI) | payer MEDICARE ==
[~2023-03-10] MED LIST changes: +DEXA4TA PO
== END ==
LOC: M ONCR 10:38
PROVIDERS: ATTEND General Practice
DX: C34.90 Malignant neoplasm of unspecified part of unspecified bronchus or lung (principal); C79.31 Secondary malignant neoplasm of brain; F32.A Depression, unspecified; F41.9 Anxiety disorder, unspecified; Z86.73 Personal history of transient ischemic attack (TIA), and cerebral infarction without residual deficits; Z79.51 Long term (current) use of inhaled steroids; Z79.52 Long term (current) use of systemic steroids; Z79.899 Other long term (current) drug therapy; Z87.891 Personal history of nicotine dependence; Z88.0 Allergy status to penicillin; Z91.010 Allergy to peanuts

== ENCOUNTER 2023-03-25 08:00 | Outpatient (RCR) | payer MEDICARE ==
[~2023-03-25 08:00] MED LIST changes: +LORA2TAB14 PO; +ONDA4TAB6 PO
[2023-03-28] MEDS ORDERED: KEPP1SOL PO (11:31)
== END 2023-03-27 ==
LOC: M ONCR 08:00
PROVIDERS: ATTEND General Practice
DX: Z51.0 Encounter for antineoplastic radiation therapy (principal); C34.11 Malignant neoplasm of upper lobe, right bronchus or lung; C79.31 Secondary malignant neoplasm of brain

== ENCOUNTER 2023-03-28 10:34 | Outpatient (RCR) | payer MEDICARE ==
[2023-03-28] MEDS ORDERED: KEPP1SOL PO (11:31)
[2023-04-06] MEDS ORDERED: ATIV1TAB7 PO (14:48)
[2023-04-13] MEDS ORDERED: MORP15TA2 PO (15:59)
[2023-04-14] MEDS ORDERED: MORP15TA2 PO (15:28)
[2023-04-19] MEDS ORDERED: DEXA2TA PO (10:44)
[2023-04-28] MEDS ORDERED: FENT1DIS14 TD (10:59)
[2023-04-28] MEDS ORDERED: MORP15TA2 PO (10:59)
[2023-04-28] MEDS ORDERED: ATIV1TAB7 PO (10:59)
[2023-04-28] MEDS ORDERED: LACT20EL PO (11:15)
== END 2023-04-27 ==
LOC: M ONCR 10:34
PROVIDERS: ATTEND General Practice
DX: C79.31 Secondary malignant neoplasm of brain (principal); C34.11 Malignant neoplasm of upper lobe, right bronchus or lung

== ENCOUNTER 2023-04-07 08:50 | Emergency (ER) | payer OTHER, MEDICARE ==
[~2023-04-07] VITALS: Ht 162.6 cm; Wt 74.9 kg
[~2023-04-07 08:50] MED LIST changes: +ATIV1TAB7 PO; +KEPP1SOL PO
[2023-04-07 08:51] VITALS: BP 141/96
== END 2023-04-07 10:32 | disposition left against medical advice (07) ==
LOC: M ED 08:50
DX: M79.10 Myalgia, unspecified site (principal); Z53.21 Procedure and treatment not carried out due to patient leaving prior to being seen by health care provider

== ENCOUNTER → 2023-04-14 | Outpatient (CLI) | payer MEDICARE, OTHER ==
[~2023-04-14] VITALS: Ht 162.6 cm; Wt 72.0 kg
[~2023-04-14] MED LIST changes: +MORP15TA2 PO
[2023-04-14 14:47] VITALS: BP 127/90
== END ==
LOC: M PAL 14:33
PROVIDERS: ATTEND Nurse Practitioner Adult Health
DX: C79.31 Secondary malignant neoplasm of brain (principal); Z85.118 Personal history of other malignant neoplasm of bronchus and lung; Z92.21 Personal history of antineoplastic chemotherapy; Z92.3 Personal history of irradiation; Z51.5 Encounter for palliative care; G89.3 Neoplasm related pain (acute) (chronic); F41.8 Other specified anxiety disorders; J44.9 Chronic obstructive pulmonary disease, unspecified; I10 Essential (primary) hypertension; E78.00 Pure hypercholesterolemia, unspecified; F34.1 Dysthymic disorder; Z79.52 Long term (current) use of systemic steroids; Z79.891 Long term (current) use of opiate analgesic; Z87.891 Personal history of nicotine dependence; Z86.73 Personal history of transient ischemic attack (TIA), and cerebral infarction without residual deficits; Z88.0 Allergy status to penicillin

== ENCOUNTER → 2023-04-19 | Outpatient (CLI) | payer MEDICARE ==
[~2023-04-19] MED LIST changes: +FENT1DIS14 TD
== END ==
LOC: M ONCR 10:12
PROVIDERS: ATTEND General Practice
DX: Z01.89 Encounter for other specified special examinations (principal); Z92.3 Personal history of irradiation; Z79.52 Long term (current) use of systemic steroids

== ENCOUNTER → 2023-04-28 | Outpatient (CLI) | payer MEDICARE, OTHER | LOC: M PAL 10:22 | PROVIDERS: ATTEND Nurse Practitioner Adult Health | DX: C79.31 Secondary malignant neoplasm of brain (principal); Z85.118 Personal history of other malignant neoplasm of bronchus and lung; Z51.5 Encounter for palliative care; G89.3 Neoplasm related pain (acute) (chronic); Z92.3 Personal history of irradiation; Z92.21 Personal history of antineoplastic chemotherapy; Z79.52 Long term (current) use of systemic steroids; Z79.891 Long term (current) use of opiate analgesic; Z79.899 Other long term (current) drug therapy; K59.00 Constipation, unspecified; R11.0 Nausea; R63.0 Anorexia; F32.A Depression, unspecified; F41.9 Anxiety disorder, unspecified; Z86.73 Personal history of transient ischemic attack (TIA), and cerebral infarction without residual deficits; Z87.891 Personal history of nicotine dependence; Z88.0 Allergy status to penicillin ==

== ENCOUNTER → 2023-05-10 | Outpatient (CLI) | payer MEDICARE ==
[~2023-05-10] MED LIST changes: +CYMB1CAP5 PO; +DEXA1TA PO; +DULO30CA9 PO; +HYOS125TA PO; +LORA1TAB23 PO; +METO75TA PO; +MORP1SOL5 PO; +TRAN1DIS4 TOP
== END ==
LOC: M ONCR 14:45
PROVIDERS: ATTEND General Practice
DX: C34.11 Malignant neoplasm of upper lobe, right bronchus or lung (principal); C79.31 Secondary malignant neoplasm of brain; R29.6 Repeated falls; Z71.2 Person consulting for explanation of examination or test findings; Z79.51 Long term (current) use of inhaled steroids; Z79.52 Long term (current) use of systemic steroids; Z79.891 Long term (current) use of opiate analgesic; Z79.899 Other long term (current) drug therapy; Z87.891 Personal history of nicotine dependence; Z88.0 Allergy status to penicillin; Z92.21 Personal history of antineoplastic chemotherapy; Z92.3 Personal history of irradiation

== ENCOUNTER 2023-05-12 13:35 | Observation (INO) | payer MEDICARE ==
[~2023-05-12] VITALS: Ht 165.1 cm; Wt 65.0 kg
[2023-05-12 13:35] VITALS: TEMP 96.3
[~2023-05-12 13:35] MED LIST changes: -CYMB1CAP5 PO; -DEXA1TA PO; -DULO30CA9 PO; -HYOS125TA PO; -LORA1TAB23 PO; -MORP1SOL5 PO; -TRAN1DIS4 TOP
[2023-05-12] MEDS ORDERED: NS 1,000 ML IV ONE (15:05)
[2023-05-12 15:52] LABS: VENOUS HCO3 25.9 MMOL/L (23.0-27.0); VENOUS O2 SATURATION 66.3 % (60.0-80.0); VENOUS PARTIAL PRESSURE CO2 38.1 mmHg (38.0-50.0); VENOUS STANDARD HCO3 25.4 MMOL/L; VENOUS TOTAL CO2 27.1 MMOL/L (24.0-28.0)
[2023-05-12 15:55] LABS: BASO # 0.1 10^3/uL (0.0-0.2); BASO % 0.5 % (0.0-1.0); EOS % 0.2 % (0.0-3.0); HEMATOCRIT 41.4 % (36.0-47.0); HEMOGLOBIN 13.7 g/dl (12.0-15.5); LYMPH # 0.7 10^3/uL (1.5-5.0); LYMPH % 5.8 % (24.0-44.0); MEAN CORPUSCULAR HEMOGLOBIN 29.7 pg (27.0-33.0); MEAN CORPUSCULAR HGB CONC 33.1 g/dl (32.0-36.5); MEAN CORPUSCULAR VOLUME 89.6 fl (80.0-96.0); MONO % 7.7 % (2.0-8.0); NEUTROPHILS # 10.5 10^3/uL (1.5-8.5); NEUTROPHILS % 83.5 % (36.0-66.0); PLATELET COUNT, AUTOMATED 195 10^3/uL (150-450); RED BLOOD COUNT 4.62 10^6/uL (4.00-5.40); WHITE BLOOD COUNT 12.5 10^3/uL (4.0-10.0)
[2023-05-12 16:20] LABS: ALBUMIN 3.1 G/DL (3.2-5.2); ALKALINE PHOSPHATASE 140 U/L (46-116); ALT/SGPT 20 U/L (7.0-40); AST/SGOT 54 U/L (<34); BILIRUBIN,DIRECT 0.3 MG/DL (<0.4); BILIRUBIN,TOTAL 0.9 MG/DL (0.3-1.2); BLOOD UREA NITROGEN 30 MG/DL (9-23); CALCIUM LEVEL 8.5 MG/DL (8.3-10.6); CARBON DIOXIDE LEVEL 25 MMOL/L (20-31); CHLORIDE LEVEL 105 MMOL/L (98-107); CREATININE FOR GFR 0.81 MG/DL (0.55-1.30); GLOMERULAR FILTRATION RATE > 60.0 (>45); GLUCOSE, FASTING 147 MG/DL (74-106); POTASSIUM SERUM 3.3 MMOL/L (3.5-5.1); SODIUM LEVEL 141 MMOL/L (136-145); TOTAL PROTEIN 5.8 G/DL (5.7-8.2)
[2023-05-12 16:23] LABS: OSMOLALITY SERUM 291 MOSM/KG (280-301)
[2023-05-12 16:24] LABS: THYROID STIMULATING HORMONE 2.967 uIU/ML (0.55-4.78)
[2023-05-12] MEDS ORDERED: SCOPOLAMINE 1MG TRANSDERMAL PATCH TOP PRN (17:30)
[2023-05-12] MEDS ORDERED: LORazepam 1 MG TAB PO PRN (17:30)
[2023-05-12] MEDS ORDERED: ONDANSETRON 4MG ORAL DISINTEGRATING TAB PO PRN (17:30)
[2023-05-12] MEDS ORDERED: DEXA2TA PO (18:15)
[2023-05-12] MEDS ORDERED: DULO30CA9 PO (18:15)
[2023-05-12] MEDS ORDERED: ATOR1TAB21 PO (18:15)
[2023-05-12] MEDS ORDERED: ONDA4TAB6 PO (18:21)
[2023-05-12] MEDS ORDERED: METO1TAB33 PO (18:21)
[2023-05-12] MEDS ORDERED: LORA1TAB23 PO (18:21)
[2023-05-12] MEDS ORDERED: MORP15TA2 PO (18:21)
[2023-05-12] MEDS ORDERED: FENT1DIS14 TD (18:21)
[2023-05-12] MEDS ORDERED: LEXA1TAB PO (18:21)
[2023-05-12] MEDS ORDERED: HOME MED LIST COMPLETE! XX SCH (18:25)
[2023-05-12] MEDS ORDERED: fentaNYL 25 MCG/HR PATCH TD PRN (18:50)
[2023-05-12] MEDS ORDERED: FENTANYL REMOVAL DOCUMENTATION MISC XX SCH (18:50)
[2023-05-12] MEDS ORDERED: LACTULOSE 20GM/30ML SYRUP UDC PO PRN (18:55)
[2023-05-12] MEDS ORDERED: ALBUTEROL SULFATE 2.5MG/0.5ML INH NEB SOLN NEB PRN (18:55)
[2023-05-12 19:30] VITALS: BP 126/78
[2023-05-12 20:00] VITALS: O2SAT 98
[2023-05-12] MEDS: DULoxetine 30MG CAPSULE (CYMBALTA) PO SCH (21:28)
[2023-05-12] MEDS: MORPHINE 10MG/0.5ML ORAL CONCENTRATE SOLUTION U/D SL PRN (21:29)
[2023-05-13] MEDS: ESCITALOPRAM OXALATE 10 MG TAB (LEXAPRO) PO SCH (09:28)
[2023-05-13] MEDS: dexAMETHasone 1 MG TAB PO SCH (09:28)
[2023-05-13] MEDS ORDERED: CHLORASEPTIC SPRAY MT PRN (17:35)
[2023-05-13] MEDS: DULoxetine 30MG CAPSULE (CYMBALTA) PO SCH ×2 (21:00→22:26)
[2023-05-13] MEDS: MORPHINE 10MG/0.5ML ORAL CONCENTRATE SOLUTION U/D SL PRN (22:34)
[2023-05-14] MEDS: ESCITALOPRAM OXALATE 10 MG TAB (LEXAPRO) PO SCH (08:29)
[2023-05-14] MEDS: dexAMETHasone 1 MG TAB PO SCH (08:29)
[2023-05-14] MEDS: MORPHINE 10MG/0.5ML ORAL CONCENTRATE SOLUTION U/D SL PRN (17:22)
[2023-05-14] MEDS: DULoxetine 30MG CAPSULE (CYMBALTA) PO SCH (21:00)
[2023-05-15] MEDS: dexAMETHasone 1 MG TAB PO SCH (09:27)
[2023-05-15] MEDS: ESCITALOPRAM OXALATE 10 MG TAB (LEXAPRO) PO SCH (09:28)
[2023-05-15] MEDS: MORPHINE 10MG/0.5ML ORAL CONCENTRATE SOLUTION U/D SL PRN ×2 (12:18→19:37)
[2023-05-15] MEDS: DULoxetine 30MG CAPSULE (CYMBALTA) PO SCH (21:00)
[2023-05-16] MEDS: MORPHINE 10MG/0.5ML ORAL CONCENTRATE SOLUTION U/D SL PRN ×3 (07:40→19:21)
[2023-05-16] MEDS: ESCITALOPRAM OXALATE 10 MG TAB (LEXAPRO) PO SCH (09:53)
[2023-05-16] MEDS: dexAMETHasone 1 MG TAB PO SCH (09:53)
[2023-05-16] MEDS: DULoxetine 30MG CAPSULE (CYMBALTA) PO SCH (21:00)
[2023-05-17] MEDS: ESCITALOPRAM OXALATE 10 MG TAB (LEXAPRO) PO SCH (08:09)
[2023-05-17] MEDS: dexAMETHasone 1 MG TAB PO SCH (08:09)
[2023-05-17] MEDS: MORPHINE 10MG/0.5ML ORAL CONCENTRATE SOLUTION U/D SL PRN ×5 (08:09→20:51)
[2023-05-17] MEDS: DULoxetine 30MG CAPSULE (CYMBALTA) PO SCH (21:00)
[2023-05-18] MEDS: MORPHINE 10MG/0.5ML ORAL CONCENTRATE SOLUTION U/D SL PRN ×4 (04:37→20:22)
[2023-05-18] MEDS: dexAMETHasone 1 MG TAB PO SCH (10:07)
[2023-05-18] MEDS: ESCITALOPRAM OXALATE 10 MG TAB (LEXAPRO) PO SCH (10:08)
[2023-05-18] MEDS: DULoxetine 30MG CAPSULE (CYMBALTA) PO SCH (19:50)
[2023-05-19] MEDS: MORPHINE 10MG/0.5ML ORAL CONCENTRATE SOLUTION U/D SL PRN ×4 (09:23→17:22)
[2023-05-19] MEDS: dexAMETHasone 1 MG TAB PO SCH (09:23)
[2023-05-19] MEDS: ESCITALOPRAM OXALATE 10 MG TAB (LEXAPRO) PO SCH (09:23)
[2023-05-19] MEDS: DULoxetine 30MG CAPSULE (CYMBALTA) PO SCH (21:00)
[2023-05-20] MEDS: MORPHINE 10MG/0.5ML ORAL CONCENTRATE SOLUTION U/D SL PRN ×4 (01:10→20:41)
[2023-05-20] MEDS: ESCITALOPRAM OXALATE 10 MG TAB (LEXAPRO) PO SCH (08:31)
[2023-05-20] MEDS: dexAMETHasone 1 MG TAB PO SCH (08:32)
[2023-05-20] MEDS: DULoxetine 30MG CAPSULE (CYMBALTA) PO SCH (20:38)
[2023-05-21] MEDS: MORPHINE 10MG/0.5ML ORAL CONCENTRATE SOLUTION U/D SL PRN ×4 (06:48→20:44)
[2023-05-21] MEDS: ESCITALOPRAM OXALATE 10 MG TAB (LEXAPRO) PO SCH (08:21)
[2023-05-21] MEDS: dexAMETHasone 1 MG TAB PO SCH (08:21)
[2023-05-21] MEDS: DULoxetine 30MG CAPSULE (CYMBALTA) PO SCH (20:23)
[2023-05-22] MEDS: MORPHINE 10MG/0.5ML ORAL CONCENTRATE SOLUTION U/D SL PRN ×5 (00:12→22:32)
[2023-05-22] MEDS: dexAMETHasone 1 MG TAB PO SCH (08:54)
[2023-05-22] MEDS: ESCITALOPRAM OXALATE 10 MG TAB (LEXAPRO) PO SCH (08:54)
[2023-05-22] MEDS: SENNA 8.6 MG TAB (SENOKOT) PO PRN (14:14)
[2023-05-22] MEDS: DULoxetine 30MG CAPSULE (CYMBALTA) PO SCH (21:00)
[2023-05-23] MEDS: dexAMETHasone 1 MG TAB PO SCH (08:48)
[2023-05-23] MEDS: SENNA 8.6 MG TAB (SENOKOT) PO PRN (08:48)
[2023-05-23] MEDS: MORPHINE 10MG/0.5ML ORAL CONCENTRATE SOLUTION U/D SL PRN ×5 (08:48→21:00)
[2023-05-23] MEDS: ESCITALOPRAM OXALATE 10 MG TAB (LEXAPRO) PO SCH (08:48)
[2023-05-23] MEDS: DULoxetine 30MG CAPSULE (CYMBALTA) PO SCH (19:39)
[2023-05-24] MEDS: MORPHINE 10MG/0.5ML ORAL CONCENTRATE SOLUTION U/D SL PRN ×6 (01:38→23:08)
[2023-05-24] MEDS: ESCITALOPRAM OXALATE 10 MG TAB (LEXAPRO) PO SCH (08:54)
[2023-05-24] MEDS: dexAMETHasone 1 MG TAB PO SCH (08:55)
[2023-05-24] MEDS ORDERED: CYMB1CAP5 PO (16:48)
[2023-05-24] MEDS ORDERED: TRAN1DIS4 TOP (16:48)
[2023-05-24] MEDS ORDERED: ATIV1TAB10 PO (16:48)
[2023-05-24] MEDS ORDERED: LEXA1TAB PO (16:48)
[2023-05-24] MEDS ORDERED: DEXA1TA PO (16:48)
[2023-05-24] MEDS ORDERED: ONDA4TAB6 PO (16:48)
[2023-05-24] MEDS ORDERED: HYOS125TA PO (16:48)
[2023-05-24] MEDS ORDERED: MORP1SOL5 PO (16:48)
[2023-05-24] MEDS: DULoxetine 30MG CAPSULE (CYMBALTA) PO SCH (19:21)
[2023-05-25] MEDS: MORPHINE 10MG/0.5ML ORAL CONCENTRATE SOLUTION U/D SL PRN ×3 (03:00→11:09)
[2023-05-25] MEDS: ESCITALOPRAM OXALATE 10 MG TAB (LEXAPRO) PO SCH (09:15)
[2023-05-25] MEDS: dexAMETHasone 1 MG TAB PO SCH (09:15)
== END 2023-05-25 11:15 | disposition hospice, home (50) ==
LOC: M ED 13:35 → M ED INP 17:27 → M MS5PR 20:55
PROVIDERS: ADMIT Internal Medicine Nephrology; ATTEND General Practice
DX: C78.01 Secondary malignant neoplasm of right lung (principal); C79.71 Secondary malignant neoplasm of right adrenal gland; C79.72 Secondary malignant neoplasm of left adrenal gland; C79.31 Secondary malignant neoplasm of brain; E86.0 Dehydration; R00.0 Tachycardia, unspecified; E87.6 Hypokalemia; F34.1 Dysthymic disorder; K59.09 Other constipation; J44.9 Chronic obstructive pulmonary disease, unspecified; R56.9 Unspecified convulsions; I10 Essential (primary) hypertension; E78.00 Pure hypercholesterolemia, unspecified; F41.9 Anxiety disorder, unspecified; E55.9 Vitamin D deficiency, unspecified; E74.39 Other disorders of intestinal carbohydrate absorption; D64.9 Anemia, unspecified; J96.11 Chronic respiratory failure with hypoxia; M79.604 Pain in right leg; F10.11 Alcohol abuse, in remission; Z86.73 Personal history of transient ischemic attack (TIA), and cerebral infarction without residual deficits; R63.0 Anorexia; R13.10 Dysphagia, unspecified; R53.1 Weakness; Z92.21 Personal history of antineoplastic chemotherapy; Z92.3 Personal history of irradiation; Z88.0 Allergy status to penicillin; Z79.899 Other long term (current) drug therapy; Z51.5 Encounter for palliative care; Z66 Do not resuscitate
CPT/HCPCS: 70450; 80048; 80076; 82140; 82803; 83605; 83930; 84443; 85025; 87635; 93005; 93041; 94760; 96360; 99285; G0378